=== PATIENT | male | born 1960 | race Caucasian/White ===

== ENCOUNTER 2020-03-24 11:03 | Inpatient (IN) | payer OTHER ==
--- NOTE | 2020-03-24 11:17 | BHS.RME ---
Substance Use & Tx History - Substance Use History Benzodiazepines Substance amount: XANAX AND KLONOPIN UP TO 24 TABS Frequency of use: Daily Substance route: Oral Date of Last Use: 03/23/20 Nicotine Substance amount: 1 PACK Frequency of use: Daily Substance route: Smoking Date of Last Use: 03/24/20 Physical/Psych/Mental Status - Behavior General Behavior: Increased activity (restlessness, agitation) Eye Contact: Normal - Cooperativeness Cooperativeness: Cooperative - Thinking Thought Processes: Tight, Logical, Goal Directed - Physical Health Problems Is patient presently having any pain?: No Does patient presently have any injuries (include location): No Does patient currently have a fever: No Is patient : No CIWA Nausea/Vomitin-No Nausea/No Vomiting Muscle Tremors: 3 Anxiety: 4-Mod. Anxious/Guarded Agitation: 5 Paroxysmal Sweats: 4-Forehead w/Sweat Beads Orientation: 1-Uncertain about Date Tacttile Disturbances: 0-None Auditory Disturbances: 0-None Visual Disturbances: 0-None Headache: 0-None Present CIWA-Ar Total Score: 17
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
[2020-03-24] MEDS ORDERED: MAG HYDROX/AL HYDROX/SIMETH 30 ML UNIT-DOSE CUP PO PRN (12:56)
[2020-03-24] MEDS ORDERED: MAGNESIUM CITRATE 300 ML BOTTLE PO PRN (12:56)
[2020-03-24] MEDS ORDERED: METHOCARBAMOL 500 MG TABLET PO PRN (12:56)
[2020-03-24] MEDS ORDERED: MENTHOL/PHENOL 1 EACH UD MM PRN (12:56)
[2020-03-24] MEDS ORDERED: ACETAMINOPHEN 325 MG TABLET (FP) PO PRN ×2 (12:56)
[2020-03-24] MEDS ORDERED: NICOTINE POLACRILEX 2 MG GUM BUC PRN (12:56)
[2020-03-24] MEDS ORDERED: IBUPROFEN 400 MG TABLET (FP) PO PRN (12:56)
[2020-03-24] MEDS ORDERED: diazePAM 5 MG TABLET PO PRN (12:56)
[2020-03-24] MEDS ORDERED: ONDANSETRON *ODT* 4 MG TABLET SL ONE (13:00)
[2020-03-24 13:28] VITALS: BMI 33.0
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
[2020-03-24] MEDS ORDERED: METHADONE HCL 5 MG TABLET PO SCH (14:00)
--- NOTE | 2020-03-24 14:51 | EKG ---
Test Reason : Blood Pressure : / mmHG Vent. Rate : 069 BPM Atrial Rate : 069 BPM P-R Int : 172 ms QRS Dur : 080 ms QT Int : 432 ms P-R-T Axes : 043 -32 033 degrees QTc Int : 462 ms NORMAL SINUS RHYTHM LEFT AXIS DEVIATION ABNORMAL ECG NO PREVIOUS ECGS AVAILABLE Confirmed by MD Kings, Dorian ([id number]) on 03/24/2020 2:51:26 PM Referred By: Confirmed By:Dorian Ku MD
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
[2020-03-24] MEDS: PRENATAL VITAMINS W/ FOLIC ACID TABLET (FP) PO SCH (15:00)
[2020-03-24] MEDS: hydrOXYzine PAMOATE 25 MG CAPSULE (FP) PO SCH ×3 (15:00→22:01)
[2020-03-24] MEDS: NICOTINE 7 MG/24 HOURS TOPICAL PATCH TD SCH (15:00)
[2020-03-24] MEDS: diazePAM 5 MG TABLET PO SCH ×2 (15:00→22:01)
[2020-03-24] MEDS: METHADONE 120 MG, METHADONE 5 MG PO SCH (15:02)
[2020-03-24] MEDS ORDERED: METHADONE HCL 40 MG DISPERSABLE TABLET ONE (15:02)
[2020-03-24] MEDS ORDERED: METHADONE HCL 5 MG TABLET ONE (15:02)
[2020-03-24] MEDS: MAGNESIUM HYDROX 2400MG/30ML ORAL SUSPENSION 30 ML CUP PO PRN ×2 (15:06→22:01)
[2020-03-24 16:13] LABS: HEMOGLOBIN 13.8 GM/dL (11.7-16.9); MCH 30.6 pg (25.7-33.7); MCHC 32.8 g/dl (32.0-35.9); MEAN CELL VOLUME 93.1 fl (80-96); MEAN PLT VOLUME 10.2 fl (7.5-11.1); PLATELET COUNT 176 K/MM3 (134-434); RBC 4.51 M/mm3 (4.00-5.60); RDW 14.2 % (11.9-15.9); WHITE BLOOD COUNT 10.7 K/mm3 (4.0-10.0)
[2020-03-24 16:19] LABS: ALBUMIN 3.8 g/dl (3.4-5.0); BILIRUBIN,TOTAL 0.4 mg/dL (0.2-1); BLOOD UREA NITROGEN 24.6 mg/dL (7-18); CALCIUM 9.5 mg/dL (8.5-10.1); CREATININE 1.3 mg/dL (0.55-1.3); POTASSIUM 4.1 mmol/L (3.5-5.1)
[2020-03-24] MEDS: traZODone HCL 100 MG TABLET (FP) PO SCH (22:01)
[2020-03-24] MEDS: THIAMINE HCL 100 MG TABLET (FP) PO SCH (22:01)
[2020-03-24] MEDS: MELATONIN 5 MG TABLETS PO SCH (22:02)
[2020-03-25] MEDS: SUVOREXANT 10 MG TABLET PO PRN ×2 (01:38→22:08)
[2020-03-25] MEDS ORDERED: METHADONE HCL 5 MG TABLET ONE (03:53)
[2020-03-25] MEDS ORDERED: METHADONE HCL 40 MG DISPERSABLE TABLET ONE (03:53)
[2020-03-25] MEDS: hydrOXYzine PAMOATE 25 MG CAPSULE (FP) PO SCH ×2 (06:24→10:13)
[2020-03-25] MEDS: METHADONE 120 MG, METHADONE 5 MG PO SCH (06:24)
[2020-03-25] MEDS: diazePAM 5 MG TABLET PO SCH ×3 (06:24→22:08)
[2020-03-25] MEDS: EMTRICITABINE/TENOFOV ALAFENAM (DESCOVY) TABLET PO SCH (07:34)
[2020-03-25] MEDS: DOLUTEGRAVIR SODIUM 50 MG TABLET (NON-FORMULARY) PO SCH (07:34)
[2020-03-25] MEDS: PRENATAL VITAMINS W/ FOLIC ACID TABLET (FP) PO SCH (10:13)
[2020-03-25] MEDS: NICOTINE 7 MG/24 HOURS TOPICAL PATCH TD SCH (10:13)
[2020-03-25] MEDS ORDERED: hydrOXYzine PAMOATE 25 MG CAPSULE (FP) PO PRN (10:26)
--- NOTE | 2020-03-25 11:16 | PN ---
S CIWA - CIWA Score Nausea/Vomitin-No Nausea/No Vomiting Muscle Tremors: 3 Anxiety: 2 Agitation: 2 Paroxysmal Sweats: 2 Orientation: 0-Oriented Tacttile Disturbances: 0-None Auditory Disturbances: 0-None Visual Disturbances: 0-None Headache: 0-None Present CIWA-Ar Total Score: 9 BHS Progress Note (SOAP) Subjective: insomnia restless anxiety Objective: 03/25/20 11:15 Vital Signs Temperature 97.1 F L 03/25/20 08:49 Pulse Rate 84 03/25/20 08:49 Respiratory Rate 18 03/25/20 08:49 Blood Pressure 126/77 03/25/20 08:49 O2 Sat by Pulse Oximetry (%) 98 03/25/20 05:25 Laboratory Tests 03/24/20 03/24/20 03/24/20 14:00 14:00 14:00 WBC 10.7 H RBC 4.51 Hgb 13.8 Hct 42.0 MCV 93.1 MCH 30.6 MCHC 32.8 RDW 14.2 Plt Count 176 MPV 10.2 Sodium 140 Potassium 4.1 Chloride 108 H Carbon Dioxide 24 Anion Gap 9 BUN 24.6 H Creatinine 1.3 Est GFR (CKD-EPI)AfAm 69.22 Est GFR (CKD-EPI)NonAf 59.72 Random Glucose 119 H Calcium 9.5 Total Bilirubin 0.4 AST 25 ALT 23 Alkaline Phosphatase 86 Total Protein 9.0 H Albumin 3.8 Syphilis Serology Non-reactive COVID-19 (ADELE) 03/24/20 14:00 WBC RBC Hgb Hct MCV MCH MCHC RDW Plt Count MPV Sodium Potassium Chloride Carbon Dioxide Anion Gap BUN Creatinine Est GFR (CKD-EPI)AfAm Est GFR (CKD-EPI)NonAf Random Glucose Calcium Total Bilirubin AST ALT Alkaline Phosphatase Total Protein Albumin Syphilis Serology COVID-19 ([facility]) Not detected labs noted aaox3 ambulating no acute distress Assessment: 03/25/20 11:16 withdrawals Plan: medication for insomnia has been ordered by psychiatrist. encouraged pt to let the medication take effect increase fluids continue detox
[2020-03-25] MEDS: MAGNESIUM HYDROX 2400MG/30ML ORAL SUSPENSION 30 ML CUP PO PRN (18:39)
[2020-03-25] MEDS: traZODone HCL 100 MG TABLET (FP) PO SCH (22:08)
[2020-03-25] MEDS: THIAMINE HCL 100 MG TABLET (FP) PO SCH (22:08)
[2020-03-25] MEDS: MELATONIN 5 MG TABLETS PO SCH (22:55)
[2020-03-26] MEDS ORDERED: METHADONE HCL 40 MG DISPERSABLE TABLET ONE (04:06)
[2020-03-26] MEDS ORDERED: METHADONE HCL 5 MG TABLET ONE (04:07)
[2020-03-26] MEDS: METHADONE 120 MG, METHADONE 5 MG PO SCH (05:34)
[2020-03-26] MEDS: diazePAM 5 MG TABLET PO SCH ×2 (05:34→17:26)
[2020-03-26] MEDS: EMTRICITABINE/TENOFOV ALAFENAM (DESCOVY) TABLET PO SCH (07:20)
[2020-03-26] MEDS: DOLUTEGRAVIR SODIUM 50 MG TABLET (NON-FORMULARY) PO SCH (07:20)
[2020-03-26] MEDS: PRENATAL VITAMINS W/ FOLIC ACID TABLET (FP) PO SCH (10:56)
[2020-03-26] MEDS: NICOTINE 7 MG/24 HOURS TOPICAL PATCH TD SCH (10:57)
--- NOTE | 2020-03-26 11:07 | PN ---
S CIWA - CIWA Score Nausea/Vomitin-No Nausea/No Vomiting Muscle Tremors: None Anxiety: 2 Agitation: 2 Paroxysmal Sweats: No Perspiration Orientation: 0-Oriented Tacttile Disturbances: 0-None Auditory Disturbances: 0-None Visual Disturbances: 0-None Headache: 0-None Present CIWA-Ar Total Score: 4 BHS Progress Note (SOAP) Subjective: I still cant sleep with the medication the psych has ordered anxiety Objective: 03/26/20 11:06 Vital Signs Temperature 97.7 F 03/26/20 08:50 Pulse Rate 72 03/26/20 08:50 Respiratory Rate 18 03/26/20 08:50 Blood Pressure 122/71 03/26/20 08:50 O2 Sat by Pulse Oximetry (%) 97 03/26/20 05:27 aaox3 lying in bed no acute distress Assessment: 03/26/20 11:06 mild withdrawals Plan: continue detox increase fluids psych ordered to review current medication.
[2020-03-26] MEDS: BISMUTH SUBSALICYLATE 524 MG/30 ML UD PO PRN ×2 (13:13→17:27)
--- NOTE | 2020-03-26 14:19 | PN ---
[facility] Progress Note Note: Patient reports sleeping poorly despite taking Trazadone 100 mg/hs and Belsomra 10 mg/hs. Will increase Trazadone to 150 mg/hs
[2020-03-26] MEDS ORDERED: traZODone HCL 50 MG TABLET (FP) PO SCH (22:00)
[2020-03-26] MEDS: THIAMINE HCL 100 MG TABLET (FP) PO SCH (22:02)
[2020-03-26] MEDS: SUVOREXANT 10 MG TABLET PO PRN (22:02)
[2020-03-26] MEDS: MELATONIN 5 MG TABLETS PO SCH (22:03)
[2020-03-27] MEDS ORDERED: METHADONE HCL 40 MG DISPERSABLE TABLET ONE (03:44)
[2020-03-27] MEDS ORDERED: METHADONE HCL 5 MG TABLET ONE (03:44)
[2020-03-27] MEDS: METHADONE 120 MG, METHADONE 5 MG PO SCH (05:37)
[2020-03-27] MEDS ORDERED: diazePAM 5 MG TABLET PO ONE (06:00)
[2020-03-27 06:14] VITALS: BP 105/73; PULSE 64; TEMP 98
[2020-03-27] MEDS: DOLUTEGRAVIR SODIUM 50 MG TABLET (NON-FORMULARY) PO SCH (07:28)
[2020-03-27] MEDS: EMTRICITABINE/TENOFOV ALAFENAM (DESCOVY) TABLET PO SCH (07:28)
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
[2020-03-27] MEDS: BISMUTH SUBSALICYLATE 524 MG/30 ML UD PO PRN (09:23)
== END 2020-03-27 09:30 | disposition other institution (70) | DRG 773 ==
LOC: YASAS 11:03 → Y6N 13:02
PROVIDERS: ADMIT Allergy & Immunology; ATTEND Allergy & Immunology
PROC: HZ2ZZZZ Detoxification Services for Substance Abuse Treatment (ICD-10-PCS; principal; 2020-03-24)
DX: F13.230 Sedative, hypnotic or anxiolytic dependence with withdrawal, uncomplicated (principal); F11.20 Opioid dependence, uncomplicated; F17.210 Nicotine dependence, cigarettes, uncomplicated; F19.282 Other psychoactive substance dependence with psychoactive substance-induced sleep disorder; F39 Unspecified mood [affective] disorder; F60.2 Antisocial personality disorder; F90.9 Attention-deficit hyperactivity disorder, unspecified type; G47.00 Insomnia, unspecified; B18.2 Chronic viral hepatitis C; B97.35 Human immunodeficiency virus, type 2 [HIV 2] as the cause of diseases classified elsewhere; Z87.828 Personal history of other (healed) physical injury and trauma; Z56.0 Unemployment, unspecified
CPT/HCPCS: 36415; 80053; 85027; 86780; 93005; 93010; U0003